=== PATIENT | male | born 1950 | race Caucasian/White ===

== ENCOUNTER 2024-08-13 08:03 | Day surgery (SDC) | payer MEDICARE, OTHER ==
[2024-08-13] VITALS (8 sets, daily range): BP systolic 120–161; BP diastolic 72–89; PULSE 50–63; RESP 12–15; TEMP 98.1; O2SAT 93–98
[~2024-08-13] VITALS: Ht 177.8 cm; Wt 107.5 kg
[~2024-08-13 08:03] MED LIST: ASPI-611 PO; DIPH25CA63 PO; METF500T PO; [UNRECOGNIZED DRUG - OTHER] IV; ceFAZolin 2gm in dextrose, iso 50 ML IV ONE
[2024-08-13] MEDS ORDERED: LISI5TAB22 PO (08:41)
[2024-08-13] MEDS ORDERED: CARV3.122 PO (08:41)
[2024-08-13] MEDS ORDERED: RIVA20TA PO (08:41)
[2024-08-13] MEDS ORDERED: ATOR40TA72 PO (08:41)
[2024-08-13] MEDS ORDERED: VANCOMYCIN 1GM 200ML H20 (PEG) 200 ML IV ONE (08:45)
[2024-08-13] MEDS ORDERED: LIDOcaine 1% w/EPI 1:100,000 inj. MDV 50 ML VIAL ONE (09:07)
[2024-08-13] MEDS ORDERED: fentaNYL/PF 50MCG/1 ML 2ML syringe ONE ×2 (09:07→11:30)
[2024-08-13] MEDS ORDERED: vancomycin 1,000mg inj ONE (09:07)
[2024-08-13] MEDS ORDERED: midazolam 1 mg/ML 2ml injection ONE ×2 (09:07→11:30)
[2024-08-13 09:15] LABS: BASOPHILS # (AUTO) 0.1 X10'3 (0-0.2); BASOPHILS % (AUTO) 1.3 % (0-1); EOSINOPHILS # (AUTO) 0.2 X10'3 (0-0.9); EOSINOPHILS % (AUTO) 2.5 % (0-6); HEMATOCRIT 41.5 % (42.0-52.0); HEMOGLOBIN 14.2 g/dl (14.0-17.9); LYMPHOCYTES # (AUTO) 1.7 X10'3 (1.1-4.8); LYMPHOCYTES % (AUTO) 26.2 % (21-51); MEAN CORPUSCULAR HEMOGLOBIN 30.3 PG (27.0-31.0); MEAN CORPUSCULAR HGB CONC 34.1 g/dL (33.0-36.5); MEAN CORPUSCULAR VOLUME 88.8 FL (78-98); MEAN PLATELET VOLUME 7.1 FL (7.4-10.4); MONOCYTES # (AUTO) 0.4 X10'3 (0-0.9); MONOCYTES % (AUTO) 6.8 % (2-12); NEUTROPHILS # (AUTO) 4.1 X10'3 (1.8-7.7); NEUTROPHILS % (AUTO) 63.2 % (42-75); PLATELET COUNT 140 X10'3 (140-440); RED BLOOD COUNT 4.68 X10'6 (4.70-6.10); WHITE BLOOD COUNT 6.4 X10'3 (4.5-11.0)
[2024-08-13] MEDS: normal saline 1000ml 1,000 ML IV SCH (09:19)
[2024-08-13] MEDS: vancomycin 1,500 MG in NS 300ml IV soln IV ONE (09:20)
[2024-08-13 09:29] LABS: ALBUMIN 3.7 G/DL (3.4-5.0); ANION GAP 8 (8-16); CALCIUM 8.5 MG/DL (8.5-10.1); CHLORIDE 110 MMOL/L (99-107); CREATININE 0.85 MG/DL (0.60-1.10); GLUCOSE 116 MG/DL (70-104); POTASSIUM 4.6 MMOL/L (3.5-5.1); SODIUM 144 MMOL/L (135-145); TOTAL CARBON DIOXIDE 26.5 MMOL/L (24-32); eCRCL 78 ML/MIN; eGFR 88 ML/MIN
[2024-08-13 09:30] LABS: APTT 24 SECONDS (22-32); PROTHROMBIN TIME 10.7 SECONDS (9.0-12.0)
[2024-08-13 09:42] LABS: BLOOD UREA NITROGEN 18 MG/DL (7-18); BUN/CREATININE RATIO 21.2 (10.0-20.0)
[2024-08-13] MEDS ORDERED: normal saline 1000ml 1,000 ML IV SCH (10:00)
[2024-08-13] MEDS ORDERED: iohexol 350 MG/ML 50ML vial IV ONE (10:52)
[2024-08-13] MEDS ORDERED: HYDROmorphone 1 mg/ml syringe ONE (11:30)
== END 2024-08-13 14:15 | disposition home or self-care (01) ==
LOC: SSTAY O 08:03
PROVIDERS: ATTEND Internal Medicine Cardiovascular Disease
DX: I48.19 Other persistent atrial fibrillation (principal); I48.20 Chronic atrial fibrillation, unspecified; R00.1 Bradycardia, unspecified; I10 Essential (primary) hypertension; E11.51 Type 2 diabetes mellitus with diabetic peripheral angiopathy without gangrene; E78.00 Pure hypercholesterolemia, unspecified; Z87.891 Personal history of nicotine dependence; Z79.899 Other long term (current) drug therapy; Z96.651 Presence of right artificial knee joint; Z98.890 Other specified postprocedural states
CPT/HCPCS: 33207; 36415; 71045; 80048; 83735; 85025; 85610; 85730; 99152; 99153; A4565; A6258; J1171; J2250; J3010; J3370; J3372; J3490; J7030; Q9967; C1786; C1898